=== PATIENT | female | born 1965 | race Caucasian/White ===

== ENCOUNTER 2016-08-11 18:41 | Emergency (ER) | payer BC ==
[2016-08-11 19:33] VITALS: BP 147/79
--- NOTE | 2016-08-11 21:33 | UC ---
Knee Pain HPI - HPI Summary HPI Summary: 51 y/o female c/o left knee discomfort after she hit her knee against a desk today. States that she feels she is unable to straighten the knee related to pain. - History of Current Complaint Chief Complaint: UCLowerExtremity Stated Complaint: LEFT KNEE PAIN Time Seen by Provider: 08/11/16 21:21 Hx Obtained From: Patient Hx Last Menstrual Period: 08/02/16 ?: No Onset/Duration: Sudden Onset Pain Intensity: 4 Pain Scale Used: 0-10 Numeric Character: Aching Aggravating Factor(s): Movement, Weight Bearing Alleviating Factor(s): Rest, Cold Associated Signs And Symptoms: Positive: Negative Able to Bear Weight: Yes - Risk Factors Septic Arthritis Risk Factor: Negative Gout Risk Factor: Negative - Allergies/Home Medications Allergies/Adverse Reactions: Allergies Allergy/AdvReac Type Severity Reaction Status Date / Time Azithromycin Allergy Intermediate Hives Verified 08/11/16 19:25 Sulfa Antibiotics Allergy Intermediate Hives Verified 08/11/16 19:25 Tetracycline Allergy Mild headaches Verified 08/11/16 19:25 Home Medications: Home Medications Mometasone 220 MCG MDI * [Asmanex 220 MCG MDI *] 1 puff INH DAILY 08/11/16 [ History Confirmed 08/11/16] Triamcinolone NASAL SPRAY* [Nasacort AQ Nasal [place]*] 1 puff NASAL DAILY [History Confirmed 08/11/16] PMH/Surg Hx/FS Hx/Imm Hx Previously Healthy: Yes Endocrine History Of: Denies: Diabetes Cardiovascular History Of: Reports: Cardiac Disorders - mitrovalve prolapse Denies: Hypertension, Pacemaker/ICD Respiratory History Of: Reports: Asthma GI/ History Of: Denies: Gastroesophageal Reflux, Renal Disease Neurological History Of: Denies: TIA, CVA Psychological History Of: Denies: Anxiety, Depression, Bipolar Disorder - Surgical History Surgical History: Yes Surgery Procedure, Year, and Place: ganglion cyst removed LT [facility], wisdom teeth extraction; S[facility] - Family History Known Family History: Positive: None - Social History Occupation: Employed Full-time Lives: With Family Alcohol Use: None Substance Use Type: None Smoking Status (MU): Never Smoked Tobacco Have You Smoked in the Last Year: No Review of Systems Constitutional: Negative Skin: Negative Eyes: Negative ENT: Negative Respiratory: Negative Cardiovascular: Negative Gastrointestinal: Negative Genitourinary: Negative Motor: Negative Neurovascular: Negative Musculoskeletal: Decreased ROM - Left knee Neurological: Negative Psychological: Negative All Other Systems Reviewed And Are Negative: Yes Physical Exam Triage Information Reviewed: Yes Appearance: Well-Appearing, No Pain Distress, Well-Nourished Vital Signs: Initial Vital Signs Temp 98.9 F 08/11/16 19:28 Pulse 70 08/11/16 19:28 Resp 18 08/11/16 19:28 BP 147/79 08/11/16 19:28 Pulse Ox 99 08/11/16 19:28 Vital Signs Reviewed: Yes Eye Exam: Normal Eyes: Positive: Conjunctiva Clear ENT Exam: Normal ENT: Positive: Normal ENT inspection, Hearing grossly normal, Pharynx normal, TMs normal Dental Exam: Normal Neck exam: Normal Neck: Positive: Supple, Nontender, No Lymphadenopathy Respiratory Exam: Normal Respiratory: Positive: Chest non-tender, Lungs clear, Normal breath sounds, No respiratory distress, No accessory muscle use Cardiovascular: Positive: RRR, No Murmur, Pulses Normal Abdomen Description: Positive: Nontender, No Organomegaly, Soft Bowel Sounds: Positive: Present Musculoskeletal Exam: Normal Musculoskeletal: Positive: Strength Intact, ROM Intact, No Edema, Strength Limited @ - Left knee, ROM Limited @ - Left knee flexion and extension Neurological: Positive: Alert Psychological Exam: Normal Skin Exam: Normal - Additional Comments Negative posterior drawer sign, parish test, and posterior sag sign. No erythema or edema in the left knee, popliteal space, or ankle. Equal strength in bilateral quadriceps. Normal gait observed, positive weakness with leg bends in the left knee Knee Pain Course/Dx - Differential Dx/Diagnosis Provider Diagnoses: Left knee contusion Discharge - Discharge Plan Condition: Stable Disposition: HOME Prescriptions: Naproxen Sodium 500 mg PO BID #20 tab Patient Education Materials: Contusion in Adults (ED) Referrals: Tegan Gipson MD [Primary Care Provider] - If Needed Additional Instructions: As discussed, see primary care provider if symptoms worsen or fail to improve within the week.
== END 2016-08-11 21:52 | disposition home or self-care (01) ==
LOC: UCCORT 18:41
DX: S80.02XA Contusion of left knee, initial encounter (principal); W22.8XXA Striking against or struck by other objects, initial encounter; Y93.9 Activity, unspecified; Y92.9 Unspecified place or not applicable; J45.909 Unspecified asthma, uncomplicated; I34.1 Nonrheumatic mitral (valve) prolapse; Z88.1 Allergy status to other antibiotic agents; Z88.2 Allergy status to sulfonamides
CPT/HCPCS: 99213; G0463